=== PATIENT | female | born 1950 | race Caucasian/White ===

== ENCOUNTER → 2019-09-29 10:45 | Outpatient (CLI) | payer BC ==
[2019-09-29 12:25] LABS: INR 2.14 (0.85-1.17); PROTIME 23.6 SECONDS (11.6-15.0)
== END | disposition home or self-care (01) ==
LOC: D.LAB 10:45
DX: I26.99 Other pulmonary embolism without acute cor pulmonale (principal); I82.91 Chronic embolism and thrombosis of unspecified vein; Z79.01 Long term (current) use of anticoagulants

== ENCOUNTER → 2019-10-26 09:18 | Outpatient (CLI) | payer BC ==
[2019-10-26 10:17] LABS: INR 2.33 (0.85-1.17); PROTIME 25.2 SECONDS (11.6-15.0)
== END | disposition home or self-care (01) ==
LOC: D.LAB 09:18
DX: I26.99 Other pulmonary embolism without acute cor pulmonale (principal); I82.91 Chronic embolism and thrombosis of unspecified vein; Z79.01 Long term (current) use of anticoagulants

== ENCOUNTER → 2019-11-26 12:50 | Outpatient (CLI) | payer BC ==
[2019-11-26 13:19] LABS: BASOPHILS 0.3 % (0-2); EOSINOPHILS 1.3 % (0-7); HEMATOCRIT 39.6 % (36.0-48.0); IMMATURE GRANULOCYTES 0.2 % (0-5); LYMPHOCYTES 15.9 % (15-50); MCH 30.5 pg (26.0-34.0); MCHC 32.8 g/dL (31.0-37.0); NEUTROPHILS 74.3 % (40-80); PLATELET COUNT 250 10x3/uL (130-400); RBC 4.26 10x6/uL (4.00-5.40); RDW 13.2 % (11.5-14.5); WBC 6.2 10x3/uL (4.8-10.8)
[2019-11-26 13:31] LABS: INR 2.35 (0.85-1.17); PROTIME 25.3 SECONDS (11.6-15.0)
[2019-11-26 14:05] LABS: BASOPHILS 1 % (0-2); LYMPHOCYTES 16 % (15-50); NEUTROPHILS 79 % (40-80); PLATELET ESTIMATE NORMAL
[2019-11-27 11:40] LABS: ALBUMIN 3.7 g/dL (3.4-5.0); ALKALINE PHOSPHATASE 91 U/L (30-120); ALT (SGPT) 25 U/L (10-68); BILIRUBIN - TOTAL 0.15 mg/dL (0.2-1.3); CALC OSMOLALITY 280 mosm/kg (275-300); CALCIUM 9.9 mg/dL (8.5-10.1); CARBON DIOXIDE 27.4 mmol/L (21.0-32.0); CHLORIDE - SERUM 105 mmol/L (98-107); CREATININE - SERUM 0.8 mg/dL (0.6-1.3); GLUCOSE 90 mg/dL (74-106); POTASSIUM - SERUM 5.7 mmol/L (3.5-5.1); PROTEIN - SERUM 7.2 g/dL (6.4-8.2); SODIUM 140 mmol/L (136-145); UREA NITROGEN 19 mg/dL (7-18); eGFR NON AFRICAN AMERICAN 75 mL/min (90-120)
== END | disposition home or self-care (01) ==
LOC: D.LAB 12:50
DX: I82.402 Acute embolism and thrombosis of unspecified deep veins of left lower extremity (principal)